=== PATIENT | female | born 1970 | race Caucasian/White ===

== ENCOUNTER 2017-02-06 07:55 | Inpatient (IN) | payer BC ==
[2017-02-06 08:39] VITALS: BMI 46.5
[2017-02-06] MEDS ORDERED: BUPIVACAINE HCL/PF 0.5% (5MG/ML) 10 ML VIAL ONE (09:18)
[2017-02-06] MEDS ORDERED: MIDAZOLAM HCL 2 MG/2 ML SINGLE DOSE VIAL ONE (09:27)
--- NOTE | 2017-02-06 09:52 | HP ---
DATE OF ADMISSION: 02/06/2017 CHIEF COMPLAINT: Morbid obesity. HISTORY OF PRESENT ILLNESS: This patient is a 47-year-old woman with a history of morbid obesity for many years despite multiple attempts at dietary weight loss. She has a past medical history of morbid obesity plus hypertension, sleep apnea, and asthma, all related to her morbid obesity. She received pulmonary, nutrition, psychological evaluation and clearance prior to undergoing elective weight loss surgery. PAST MEDICAL HISTORY: The past medical problems significant for the aforementioned hypertension, sleep apnea, and asthma. PAST SURGICAL HISTORY: Only shows a section. ALLERGIES: She has no known allergies. REVIEW OF SYMPTOMS: Neurologic: Within normal limit. Respiratory: Occasional wheezing. Gastrointestinal: No heartburn noted. Musculoskeletal: Within normal limit. PHYSICAL EXAMINATION: General: Awake, alert, in no acute distress, significant for morbid obesity. HEENT: No masses. Lungs: Clear bilaterally. Heart: Regular sinus rhythm. Abdomen: Noted to be obese, soft and nontender on palpation. Extremities: No swelling noted. IMPRESSION: Morbid obesity. PLAN: Bring to the operating room for elective laparoscopic vertical sleeve gastrectomy/possible open vertical sleeve gastrectomy. Yumiko [id number]
[2017-02-06] MEDS ORDERED: ceFAZolin SODIUM 1 GM VIAL IVPB ONE (10:01)
[2017-02-06] MEDS ORDERED: ROCURONIUM BROMIDE 50 MG/5 ML VIAL ONE (11:23)
[2017-02-06] MEDS ORDERED: BUPIVACAINE HCL/PF 0.5% (5MG/ML) 10 ML VIAL IJ ONE (11:26)
[2017-02-06] MEDS ORDERED: NEOSTIGMINE METHYLSULFATE 0.5 MG/ML - 10 ML MDV ONE (11:38)
[2017-02-06] MEDS ORDERED: GLYCOPYRROLATE 0.2 MG/1 ML VIAL ONE ×2 (11:38)
[2017-02-06] MEDS: ONDANSETRON 4 MG/2 ML VIAL IVPB PRN ×2 (11:44→21:46)
[2017-02-06] MEDS ORDERED: HYDROmorphone HCL CARPU-JECT 1 MG/1 ML DISP.SYRIN IVPB PRN ×2 (11:44→12:37)
[2017-02-06] MEDS ORDERED: ONDANSETRON 4 MG/2 ML VIAL IVPUSH PRN (11:54)
[2017-02-06] MEDS ORDERED: oxyCODONE HCL 5 MG TABLET PO PRN (11:54)
[2017-02-06] MEDS: METOCLOPRAMIDE HCL INJECTION 10 MG/2 ML VIAL IVPB PRN ×2 (12:30→17:50)
[2017-02-06 12:39] LABS: MCH 28.8 pg (25.7-33.7); MCHC 33.7 g/dl (32.0-36.0); MEAN CELL VOLUME 85.4 fl (80-96); MEAN PLT VOLUME 9.4 fl (7.5-11.1); PLATELET COUNT 190 K/MM3 (134-434); RDW 12.8 % (11.6-15.6); WHITE BLOOD COUNT 12.1 K/mm3 (4.0-10.0)
[2017-02-06] MEDS: HYDROmorphone HCL CARPU-JECT 2 MG/1 ML DISP.SYRIN ONE ×2 (12:50→13:40)
[2017-02-06 13:11] LABS: ALBUMIN 3.3 g/dl (3.4-5.0); ANION GAP 10 (8-16); CALCIUM 8.4 mg/dL (8.5-10.1); CO2 26 mmol/L (21-32); CREATININE 0.6 mg/dL (0.55-1.02); GLUCOSE,RANDOM 157 mg/dL (74-106); SGOT/AST 32 U/L (15-37); SGPT/ALT 39 U/L (12-78); TOT PROT 6.1 g/dl (6.4-8.2)
[2017-02-06 13:12] LABS: ALK PHOS 81 U/L (45-117); BILIRUBIN,TOTAL 0.6 mg/dL (0.2-1.0)
--- NOTE | 2017-02-06 13:33 | OP ---
DATE OF OPERATION: 02/06/2017 PREOPERATIVE DIAGNOSES: 1. Morbid obesity. 2. Sleep apnea. 3. Hypertension. POSTOPERATIVE DIAGNOSES: 1. Morbid obesity. 2. Sleep apnea. 3. Hypertension. PROCEDURE PERFORMED: 1. Laparoscopic vertical sleeve gastrectomy. 2. Diagnostic laparoscopy. OPERATING SURGEON: Daren Jackson MD RN COMPLIANCE: Ranjeet Devlin MD ANESTHESIA: General. EXPECTED BLOOD LOSS: 50 mL DISPOSITION: Patient transferred to the recovery room in stable condition. OPERATIVE PROCEDURE: The patient was brought into the operating room and placed on the OR table in the supine position. All precautions were taken initially including padding for the back and the feet, and Venodyne boots were placed on both lower extremities. At that point, the abdomen was prepped and draped in the usual manner. A Veress needle was placed in the left upper quadrant, and a pneumoperitoneum was established. A number 12 bladeless trocar was placed in the left upper quadrant. Through that trocar, a laparoscopic camera was placed. Under direct vision, a No. 15 bladeless trocar was placed in midline in a supraumbilical position, followed by a No. 5 bladeless trocar in the right upper quadrant and No. 5 bladeless trocar below the left costal margin. A Fred liver retractor was then placed in the epigastrium to retract the left lobe of the liver. The patient was then placed in a 20-degree reverse Trendelenburg position. The pylorus was noted on the distal stomach, and 6 cm were measured proximally from that point. At that point on the greater curve, the operating surgeon lifted the stomach toward the anterior abdominal wall as the server service assistant surgeon retracted the gastrocolic ligament inferiorly. A LigaSure device was used to dissect the gastrocolic ligament off the greater curve of the stomach. This continued in a superior and vertical direction along the greater curve, taking the short gastric vessels superiorly. This was continued until the final short gastric vessel between the superior pole of the spleen and the proximal fundus was divided. At this juncture, the number 36 bougie which had been placed by Anesthesia before surgery was now advanced all the way toward the pylorus. With the bougie held along the lesser curve, a series of ketan were performed. The first two being black-load ketan 6 cm in length along the bougie. This was followed by a series of purple-load ketan which continued until a final staple was fired in the left upper quadrant, and the greater curve was now completely detached from the lesser curve. It should be noted that prior to firing each staple, both the anterior and posterior paul were checked that they were equal and an area of the esophagogastric junction approximately 1 to 1.5 cm of serosa remained on both sides. At this juncture, saline was placed around the staple line, and Anesthesia inserted air into the bougie, which showed the entire stomach distended down to the pylorus. No obstruction and no leaks were noted. At this point, the resected greater curve of the stomach was removed through the No. 15 trocar site in the midline, sent off the field as specimen to Pathology. Under direct vision, the No. 15 and 12 trocar sites were closed with Endoclose device to prevent internal hernia and prevent bleeding. Under direct vision, all trocars were removed. The pneumoperitoneum was released. All trocar sites received 0.25% Marcaine, were closed with 4-0 Biosyn in subcuticular fashion. Dressings were applied. Patient awoke from anesthesia and transferred out of the operating room to the recovery room in stable condition. Yumiko [id number]
[2017-02-06] MEDS: SODIUM CHLORIDE 1,000 ML IV SCH ×2 (14:00→21:25)
[2017-02-06] MEDS ORDERED: ONDANSETRON 4 MG/2 ML VIAL ONE (14:47)
[2017-02-06] MEDS ORDERED: LABETALOL HCL 5 MG/1 ML (100MG/20 ML VIAL) IVPUSH ONE (14:51)
[2017-02-06] MEDS: HYDROmorphone HCL CARPU-JECT 1 MG/1 ML DISP.SYRIN IVPUSH PRN ×2 (17:12→21:29)
[2017-02-06] MEDS: FAMOTIDINE 20 MG/50 ML IVPB 50 ML IVPB SCH (21:26)
[2017-02-06] MEDS: ENOXAPARIN NA (PORCINE) 40 MG/0.4 ML DISP.SYRIN SQ SCH (21:30)
[2017-02-07] MEDS: HYDROmorphone HCL CARPU-JECT 1 MG/1 ML DISP.SYRIN IVPUSH PRN ×2 (02:32→07:47)
[2017-02-07] MEDS: METOCLOPRAMIDE HCL INJECTION 10 MG/2 ML VIAL IVPB PRN ×2 (02:33→08:10)
[2017-02-07] MEDS: SODIUM CHLORIDE 1,000 ML IV SCH ×2 (02:34→11:59)
[2017-02-07 06:46] LABS: MCH 29.4 pg (25.7-33.7); MCHC 34.3 g/dl (32.0-36.0); MEAN CELL VOLUME 85.7 fl (80-96); MEAN PLT VOLUME 9.4 fl (7.5-11.1); PLATELET COUNT 202 K/MM3 (134-434); WHITE BLOOD COUNT 11.7 K/mm3 (4.0-10.0)
[2017-02-07 07:49] LABS: ALBUMIN 3.2 g/dl (3.4-5.0); ANION GAP 8 (8-16); CALCIUM 8.2 mg/dL (8.5-10.1); CO2 28 mmol/L (21-32); CREATININE 0.6 mg/dL (0.55-1.02); GLUCOSE,RANDOM 99 mg/dL (74-106); SGOT/AST 18 U/L (15-37); SGPT/ALT 31 U/L (12-78)
[2017-02-07 07:51] LABS: ALK PHOS 75 U/L (45-117); BILIRUBIN,TOTAL 0.6 mg/dL (0.2-1.0)
[2017-02-07] MEDS: ENOXAPARIN NA (PORCINE) 40 MG/0.4 ML DISP.SYRIN SQ SCH ×2 (09:34→21:31)
[2017-02-07] MEDS: FAMOTIDINE 20 MG/50 ML IVPB 50 ML IVPB SCH ×2 (09:36→21:32)
--- NOTE | 2017-02-07 11:39 | PN ---
Progress Note (short form) - Note Progress Note: Anesthesia Postop Note Patient is a 47yo F POD1 Gastric Sleeve. VSS, labs stable, comfortable, no postoperative complications. Patient is walking and using incentive spirometer. Tegan Ambrose MD Anesthesiology
[2017-02-07] MEDS: oxyCODONE HCL 5 MG TABLET PO PRN ×2 (11:56→21:34)
[2017-02-07] MEDS: ACETAMINOPHEN 325 MG TABLET (FP) PO PRN ×3 (11:57→21:35)
--- NOTE | 2017-02-07 12:17 | PATH ---
Surgical Pathology Report Patient Name: LI ANDREWS [facility]. Rec. #: [id number] /Age/Gender: 1970 (Age: 47) / F Account: [id number] Location: 4 SO PEDS/ADOL Taken: 02/06/2017 Received: 02/06/2017 Reported: 02/07/2017 Physicians: Daren Jackson M.D. Specimen(s) Received GREATER CURVATURE OF STOMACH Clinical History Morbid obesity Final Diagnosis STOMACH, GREATER CURVATURE, LAPAROSCOPIC VERTICAL SLEEVE GASTRECTOMY: PORTION OF STOMACH WITH FUNDIC GLAND POLYPS AND PATCHY MILD CHRONIC GASTRITIS. IMMUNOSTAIN FOR H. PYLORI IS NEGATIVE FOR ORGANISMS. Electronically Signed Eduardo Monsalve M.D. Gross Description Received in formalin, labeled "greater curvature of stomach" is a 144 gram, 20.0 x 5.0 x 3.3 cm. portion of stomach with a stapled margin of resection. The serosa is viveros-gilmore with minimal attached fat. The mucosa displays 2 mucosal polyps measuring 0.3 and 0.4 cm in greatest dimension. The remaining mucosa is pink-viveros with normal folds. Hose Inspector And Patcher sections are submitted in 2 cassettes as follows: 1-mucosal polyps; 2-mechanical service representative normal mucosa. . /02/06/2017 saudi/02/06/2017
--- NOTE | 2017-02-07 14:40 | PN ---
Progress Note (short form) - Note Progress Note: POD#1 Afebrile; VSS P-75-90 BP-137/65 Pt doing well Still with nausea, but decreased On po clear liquids-2 oz po tid UGI- no leak, no obstruction WBC-11.7 H/H- P- Increase OOB Cont DVT prophylaxis
[2017-02-08] MEDS: oxyCODONE HCL 5 MG TABLET PO PRN (06:05)
[2017-02-08] MEDS: ACETAMINOPHEN 325 MG TABLET (FP) PO PRN (06:05)
[2017-02-08 06:42] VITALS: PULSE 89
[2017-02-08 08:40] VITALS: BP 135/77; TEMP 98.5
[2017-02-08] MEDS: FAMOTIDINE 20 MG/50 ML IVPB 50 ML IVPB SCH (09:15)
[2017-02-08] MEDS: ENOXAPARIN NA (PORCINE) 40 MG/0.4 ML DISP.SYRIN SQ SCH (09:15)
== END 2017-02-08 10:10 | disposition home or self-care (01) | DRG 621 ==
LOC: JSAMEDAYSX 07:55 → EDSTATUS 14:56 → J4S 15:36
PROVIDERS: ADMIT Surgery; ATTEND Surgery
PROC: 0DB64Z3 Excision of Stomach, Percutaneous Endoscopic Approach, Vertical (ICD-10-PCS; principal; 2017-02-06 09:00)
DX: E66.01 Morbid (severe) obesity due to excess calories (principal); Z68.42 Body mass index [BMI] 45.0-49.9, adult; I10 Essential (primary) hypertension; G47.39 Other sleep apnea; J45.909 Unspecified asthma, uncomplicated; K21.9 Gastro-esophageal reflux disease without esophagitis
CPT/HCPCS: 36415; 74241-TC; 80053; 84703; 85027; 86850; 86900; 86901; 88305-TC; 94010; 94760